=== PATIENT | male | born 1995 | race Caucasian/White ===

== ENCOUNTER 2017-08-12 20:52 | Emergency (ER) | payer SELFPAY ==
[~2017-08-12] VITALS: Ht 182.9 cm; Wt 60.0 kg
[~2017-08-12 20:52] MED LIST: IBUP-232 PO
[2017-08-12 20:54] VITALS: BP 143/92; PULSE 110; RESP 16; TEMP 98.3; O2SAT 100
--- NOTE | 2017-08-12 21:03 | PD ---
Physical Exam Date Seen by Provider: Aug 12, 2017 Time Seen by Provider: 20:59 Narrative 22-year-old male is seen by department with five-day history of flulike symptoms including headache, sore throat which is now better, using congestion in the chest with productive cough of yellow sputum. Patient has generalized aches and pains as well as decreased appetite. He denies vomiting or diarrhea. He comes in today due to the worsening chest congestion today. Patient has history of tachycardia which he has "normally". Patient is allergic to amoxicillin, Augmentin, and azithromycin. Vital signs are stable. Patient is awaiting bed placement. Data Data Last Documented VS Vital Signs Date Time Temp Pulse Resp B/P (MAP) Pulse Ox O2 Delivery O2 Flow Rate FiO2 08/12/17 20:54 98.3 110 16 143/92 (109) 100 Room Air [facility] Medical Record Reviewed: Yes Supervised Visit with YAJAIRA: Yes Condition: Stable Uche Mccoy Aug 12, 2017 21:02
[2017-08-12] MEDS ORDERED: ALBUAER3 INH (21:12)
[2017-08-12] MEDS ORDERED: MEDR4PAK PO (21:12)
--- NOTE | 2017-08-12 21:12 | PD ---
HPI Chief Complaint: Cold / Flu Symptoms Time Seen by Provider: 21:06 Travel History International Travel<30 days: No Contact w/Intl Traveler<30days: No Traveled to known affect area: No History of Present Illness HPI 22-year-old male presents to emergency department for evaluation a 5 day history of cough and chest congestion. States that his throat was sore but that has improved. States this chest congestion seems to be getting worse. It is productive intermittently of a yellow phlegm. Denies fever or chills. Patient has history tachycardia and his heart rate is normally in the 110s. Denies any chest pain. States he has had some body aches but he is not currently. Denies any other symptoms at this time. PFSH Past Medical History Autoimmune Disease: No Anxiety: Yes Depression: Yes Cancer: No Cardiovascular Problems: Yes (TACHY) Diabetes: No Diminished Hearing: No Endocrine: No Gastrointestinal Disorders: No Genitourinary: No Immune Disorder: No Implanted Vascular Access Dvce: No Musculoskeletal: No Neurologic: No Psychiatric: Yes Reproductive: No Respiratory: No Immunizations Current: Yes Thyroid Disease: No Past Surgical History Surgical History: No Previous Surgery Other Surgery: No Social History Alcohol Use: Yes (RARE) Tobacco Use: Yes (1/2 PPD) Substance Use: Yes (marijuana) Allergies-Medications (Allergen,Severity, Reaction): Coded Allergies: amoxicillin (Unverified Allergy, Severe, HIVES, 08/12/17) clavulanic acid (Unverified Allergy, Severe, HIVES, 08/12/17) azithromycin (Unverified Allergy, Mild, rash, 08/12/17) Reported Meds & Prescriptions Reported Meds & Active Scripts Active Proair Hfa 8.5 GM Inh (Albuterol Sulfate) 90 Mcg/Act Aer 2 Puff INH Q4HR PRN 108 mcg/actuation Medrol Dosepak (Methylprednisolone) 4 Mg Dspk 4 Mg PO DIRECTED Per Pharmacist direction Review of Systems Except as stated in HPI: all other systems reviewed are Neg Physical Exam Narrative GENERAL: Well-nourished male patient, in no acute distress SKIN: Focused skin assessment warm/dry. HEAD: Atraumatic. Normocephalic. EYES: Pupils equal and round. No scleral icterus. No injection or drainage. ENT: No nasal bleeding or discharge. Mucous membranes pink and moist. No erythema, edema, or exudate NECK: Trachea midline. No JVD. No anterior cervical lymphadenopathy CARDIOVASCULAR: Tachycardic rate and rhythm. No murmur appreciated. RESPIRATORY: No accessory muscle use. Diminished bilateral bases to auscultation .. Breath sounds equal bilaterally. GASTROINTESTINAL: Abdomen soft, non-tender, nondistended. Hepatic and splenic margins not palpable. MUSCULOSKELETAL: No obvious deformities. No clubbing. No cyanosis. No edema. NEUROLOGICAL: Awake and alert. No obvious cranial nerve deficits. Motor grossly within normal limits. Normal speech. Data Data Last Documented VS Vital Signs Date Time Temp Pulse Resp B/P (MAP) Pulse Ox O2 Delivery O2 Flow Rate FiO2 08/12/17 21:10 16 97 Room Air 08/12/17 20:54 98.3 110 143/92 (109) MDM Medical Decision Making Medical Screen Exam Complete: Yes Emergency Medical Condition: Yes Medical Record Reviewed: Yes Differential Diagnosis Bronchitis versus pneumonia versus influenza versus other URI Narrative Course 22-year-old male presents to emergency department for evaluation of cough and chest congestion. Patient appears without distress. He does have a dry cough here in the emergency department. Slightly diminished breath sounds in the bases. They're not course. This is likely a viral URI. Patient is counseled on symptom control. He'll be given additional medication for this. He is encouraged to follow-up with the primary care provider and return immediately with any acute worsening symptoms. Diagnosis Primary Impression: Upper respiratory infection Qualified Codes: J06.9 - Acute upper respiratory infection, unspecified; B97.89 - Other viral agents as the cause of diseases classified elsewhere Referrals: [facility] Primary Care Physician Patient Instructions: General Instructions, Upper Respiratory Infection (ED) Additional Instructions: Humidified air may help to alleviate symptoms [id number] cough syrup as directed on the package as needed for cough Follow up with a primary care provider Return immediately to the emergency department with any acute worsening symptoms Med/Other Pt SpecificInfo: Prescription(s) given Scripts Albuterol 8.5 GM Inh (Proair Hfa 8.5 GM Inh) 90 Mcg/Act Aer 2 PUFF INH Q4HR Y for SHORTNESS OF BREATH, #1 INHALER 0 Refills 108 mcg/actuation Prov: Dorie Erazo 08/12/17 Methylprednisolone Dosepak (Medrol Dosepak) 4 Mg Dspk 4 MG PO DIRECTED, #1 DSPK 0 Refills Per Pharmacist direction Prov: Dorie Erazo 08/12/17 Disposition: 01 DISCHARGE HOME Condition: Stable Dorie Erazo Aug 12, 2017 21:12
== END 2017-08-12 21:30 | disposition home or self-care (01) ==
LOC: NEPK 20:52
DX: J06.9 Acute upper respiratory infection, unspecified (principal)
CPT/HCPCS: 99284

== ENCOUNTER 2018-07-20 15:39 | Inpatient (IN) ==
[2018-07-20] MEDS ORDERED: Sod Chloride 0.9% Inj 1,000 ML IV.SIG ONE (15:50)
--- NOTE | 2018-07-20 16:23 | CT ---
EXAM DATE: 07/20/2018 4:18 PM EDT AGE/SEX: 23 years / Male INDICATIONS: Witnessed seizure. Headache. CLINICAL DATA: This is the patient's initial encounter. Patient reports that signs and symptoms have been present for 1 day and indicates a pain score of 6/10. MEDICAL/SURGICAL HISTORY: . Restless leg syndrome. None. RADIATION DOSE: 38.45 CTDI (mGy) [place] [facility] [place]. . TECHNIQUE: CT of the head without contrast. Using automated exposure control and adjustment of the mA and/or kV according to patient size, radiation dose was kept as low as reasonably achievable to ob tain optimal diagnostic quality images. DICOM format image data is available electronically for revi ew and comparison. FINDINGS: Cerebrum: The ventricles are normal for age. No evidence of midline shift, mass lesion, hemorrhage or acute infarction. No extraaxial fluid collections are seen. Posterior Fossa: The cerebellum and brainstem are intact. The 4th ventricle is midline. The cerebe llopontine angle is unremarkable. Extracranial: The visualized portion of the orbits is intact. Skull: The calvaria is intact. No evidence of skull fracture. CONCLUSION: Negative CT Head non contrast. . Electronically signed by: Riley Turner MD 07/20/2018 4:22 PM EDT
[2018-07-20 16:29] LABS: Baso % (Auto) 0.4 % (0.0-2.0); Eos # (Auto) 0.1 th/mm3 (0.0-0.4); Eos % (Auto) 1.4 % (0.0-4.0); Hematocrit 44.1 % (39.0-51.0); Lymph # (Auto) 2.5 th/mm3 (1.0-4.8); Lymph % (Auto) 24.1 % (9.0-44.0); Mean Corpuscular Hemoglobin 33.2 pg (27.0-34.0); Mean Corpuscular Volume 97.7 fL (80.0-100.0); Mean Platelet Volume 8.5 fL (7.0-11.0); Mono # (Auto) 0.5 th/mm3 (0.0-0.9); Mono % (Auto) 5.2 % (0.0-8.0); Neut # (Auto) 7.2 th/mm3 (1.8-7.7); Neut % (Auto) 68.9 % (16.0-70.0); Platelet Count 289 th/mm3 (150-450); Red Blood Count 4.51 mil/mm3 (4.50-5.90); Red Cell Distribution Width 13.4 % (11.6-17.2); White Blood Count 10.5 th/mm3 (4.0-11.0)
[2018-07-20] MEDS ORDERED: Acetaminophen 325 MG Tablet PO ONE (16:32)
[2018-07-20 16:34] LABS: Bilirubin,Urine Negative (Negative); Clarity,Urine Clear (Clear); Color,Urine Yellow (Yellw/Straw); Glucose,Urine (UA) Negative (Negative); Leukocyte Esterase,Urine Negative (Negative); Nitrite,Urine Negative (Negative); Specific Gravity,Urine 1.017 (1.002-1.035); Squamous Epithelial Cell,Urine <1 /hpf (0-5)
[2018-07-20] MEDS ORDERED: Phenytoin Inj 1,000 MG in Sodium Chlor 0.9% Inj 100 ML IV.SIG ONE (16:49)
[2018-07-20 17:00] LABS: Anion Gap 11 meq/L (5-15); Blood Urea Nitrogen 6 mg/dL (7-18); Calcium 8.6 mg/dL (8.5-10.1); Carbon Dioxide 26.1 meq/L (21.0-32.0); Chloride 104 meq/L (98-107); Glomerular Filtration Rate 87 mL/min (>89); Glucose,Random 92 mg/dL (74-106); Magnesium 1.9 mg/dL (1.5-2.5); Potassium 3.8 meq/L (3.5-5.1); Sodium 141 meq/L (136-145)
[2018-07-20] MEDS ORDERED: Sod Chloride 0.9% Inj 1,000 ML IV.SIG SCH (17:00)
[2018-07-20] MEDS ORDERED: Acetaminophen 325 MG Tablet PO PRN (17:31)
--- NOTE | 2018-07-20 17:37 | ED ---
HPI General Chief complaint: Seizure Stated complaint: Poss seizure Time Seen by Provider: 07/20/18 15:50 Source: patient, EMS and RN notes reviewed Mode of arrival: ambulatory Limitations: no limitations History of Present Illness HPI narrative: 23-year-old male the presents to the ED for evaluation of possible seizure. Patient apparently had a full clonic tonic seizure today. Per patient he has no history of seizures but he does state that when he was very young his mother told him that he had seizures secondary to "blood poisoning". Per patient he has not taken any seizure medication as far as he knows since age of 2. He does state however that he has a history of substance abuse and recently went into rehab facility for about 28 days. Per patient he did well and has been clean per patient since. He was put on gabapentin by the rehab facility as well as another medication but he cannot afford the medication secondary to his insurance not covering it. Per patient he was for depression. Per patient today he does not remember what happened all he remembers just all of a sudden his body feel shaky and then he started shaking. He denies any substance abuse since leaving the rehab. He denies any chest pain or shortness of breath or any palpitations before this happened. No fevers chills or sweats. He was found to be somewhat tachycardic by [facility] and by the time they had evaluated him he was GCS of 15. He was a little bit groggy and did took some time for the patient to come back to it. No tongue biting or loss of incontinence. Related Data Home Medications Medication Instructions Recorded Confirmed gabapentin 600 mg PO TID 07/20/18 07/20/18 Allergies Allergy/AdvReac Type Severity Reaction Status Date / Time amoxicillin Allergy Severe HIVES Verified 07/20/18 16:25 clavulanic acid Allergy Severe HIVES Verified 07/20/18 16:25 azithromycin Allergy Mild rash Verified 07/20/18 16:25 Review of Systems ROS: all other systems reviewed are negative [facility] Medical History Medical History Restless leg syndrome (Acute) Social History Social History Substance History: No History of Abuse Second Hand Smoke Exposure: No Smoking Status: Current every day smoker Tobacco Type: E-Cigarettes How Often Do You Have a Drink Containing Alcohol: Monthly or less Recent Travel in [facility] within the Last 8 Weeks: No Recent Out of Country Travel within the Last 8 Weeks: No Immunization History Tetanus Immunization: >5 Years Exam Narrative Exam Narrative: GENERAL: Well-appearing SKIN: Focused skin assessment warm/dry. HEAD: Atraumatic. Normocephalic. EYES: Pupils equal and round. No scleral icterus. No injection or drainage. ENT: No nasal bleeding or discharge. Mucous membranes pink and moist. Tongue is midline. No uvula deviation. NECK: Trachea midline. No JVD. CARDIOVASCULAR: Tachycardic rate and rhythm. No murmur appreciated. RESPIRATORY: No accessory muscle use. Clear to auscultation. Breath sounds equal bilaterally. GASTROINTESTINAL: Abdomen soft, non-tender, nondistended. Hepatic and splenic margins not palpable. MUSCULOSKELETAL: No obvious deformities. No clubbing. No cyanosis. No edema. Full range of motion of the upper and lower extremities bilaterally. 2+ pulses bilaterally. NEUROLOGICAL: Awake and alert. No obvious cranial nerve deficits. Motor grossly within normal limits. Normal speech. PSYCHIATRIC: Appropriate mood and affect; insight and judgment normal. Course Initial Documented Vital Signs Temperature 98.6 F 07/20/18 15:47 Pulse Rate 116 H 07/20/18 15:47 Respiratory Rate 18 07/20/18 15:47 Blood Pressure 142/86 H 07/20/18 15:47 Pulse Oximetry 98 07/20/18 15:47 Last Documented Vital Signs Temperature 98.6 F 07/20/18 15:47 Pulse Rate 106 H 07/20/18 16:30 Respiratory Rate 18 07/20/18 16:30 Blood Pressure 145/86 H 07/20/18 16:30 Pulse Oximetry 100 07/20/18 16:54 Medical Decision Making YAJAIRA Attestation YAJAIRA supervised visit: Yes Attestation: I, Dr. Gardner, have reviewed the advance practice practitioner's documentation and am in agreement, met with the patient face to face, made the diagnosis, and the medical decision making was done by me. *My assessment and Findings: This patient has new onset of seizure and has had multiple seizures. He has history of substance abuse problem so this certainly could be related but supposedly is clean for 1 month. Given the multiple seizures today were going to take a cautious approach and Dilantin load him and placed him into the hospital. Labs and brain CT ordered. MDM Narrative Medical decision making narrative: 23-year-old male the presents to the ED for evaluation of seizures. Patient was properly examined and was found to have signs and symptoms which appeared to be consistent with possible seizures. Labs and imaging were done here. Labs and imaging were essentially unremarkable other than elevated lactic acid. While patient was getting worked up he had another full tonic clonic seizure. He completely went limp with both upper and lower extremities and was unable to respond for about a minute. Patient was given Ativan and Dilantin. Because this is the patient's second seizure in less than an hour would recommend admission for further evaluation. Patient and friend who is at bedside agree with this. Case discussed with my attending Dr. Gardner who agrees with admission. Case discussed with Dr. Roger who agrees to admission to his service. Medical Screen Exam Complete: Yes Emergency Medical Condition: Yes Differential Diagnosis Differential Diagnosis: Seizure versus withdrawal seizures versus substance abuse Medical Records Medical records reviewed: Yes I reviewed the patient's medical records. Lab Data Lab results reviewed: Yes I reviewed the patient's lab results. Lab results narrative: lactic acid elevated Result diagrams: 07/20/18 16:00 07/20/18 16:00 Lab Results 07/20/18 07/20/18 07/20/18 Range/Units 16:00 16:00 16:05 WBC 10.5 (4.0-11.0) th/mm3 RBC 4.51 (4.50-5.90) mil/mm3 Hgb 15.0 (13.0-17.0) gm/dL Hct 44.1 (39.0-51.0) % MCV 97.7 (80.0-100.0) fL MCH 33.2 (27.0-34.0) pg MCHC 34.0 (32.0-36.0) % RDW 13.4 (11.6-17.2) % Plt Count 289 (150-450) th/mm3 MPV 8.5 (7.0-11.0) fL Neut % (Auto) 68.9 (16.0-70.0) % Lymph % (Auto) 24.1 (9.0-44.0) % [place] % (Auto) 5.2 (0.0-8.0) % Eos % (Auto) 1.4 (0.0-4.0) % Baso % (Auto) 0.4 (0.0-2.0) % Neut # (Auto) 7.2 (1.8-7.7) th/mm3 Lymph # (Auto) 2.5 (1.0-4.8) th/mm3 [place] # (Auto) 0.5 (0.0-0.9) th/mm3 Eos # (Auto) 0.1 (0.0-0.4) th/mm3 Baso # (Auto) 0.0 (0.0-0.2) th/mm3 WBC Differential . Differential Comment Auto diff final Sodium 141 (136-145) meq/L Potassium 3.8 (3.5-5.1) meq/L Chloride 104 (98-107) meq/L Carbon Dioxide 26.1 (21.0-32.0) meq/L Anion Gap 11 (5-15) meq/L BUN 6 L (7-18) mg/dL Creatinine 1.04 (0.60-1.30) mg/dL Estimated GFR 87 L (>89) mL/min Random Glucose 92 (74-106) mg/dL Lactic Acid 2.7 H (0.4-2.0) mmol/L Calcium 8.6 (8.5-10.1) mg/dL Magnesium 1.9 (1.5-2.5) mg/dL Urine Color (Yellw/Straw) Urine Clarity (Clear) Urine pH (5.0-8.5) Ur Specific [place] (1.002-1.035) Urine Protein (Neg-Trace) mg/dL Urine Glucose (UA) (Negative) mg/dL Urine Ketones (Negative) mg/dL Urine Occult Blood (Negative) Urine Nitrate (Negative) Urine Bilirubin (Negative) Urine Urobilinogen (Less than 2) mg/dL Ur Leukocyte Esterase (Negative) Urine WBC (0-5) /hpf Ur Squamous Epith Cells (0-5) /hpf Ur Microscopic Review Urine Opiates Screen (Neg) Ur Barbiturates Screen (Neg) Ur Amphetamines Screen (Neg) U Benzodiazepines Scrn (Neg) Urine Cocaine Screen (Neg) U Cannabinoids Screen (Neg) Serum Alcohol Less than 3 (0-5) mg/dL 07/20/18 07/20/18 Range/Units 16:05 16:19 WBC (4.0-11.0) th/mm3 RBC (4.50-5.90) mil/mm3 Hgb (13.0-17.0) gm/dL Hct (39.0-51.0) % MCV (80.0-100.0) fL MCH (27.0-34.0) pg MCHC (32.0-36.0) % RDW (11.6-17.2) % Plt Count (150-450) th/mm3 MPV (7.0-11.0) fL Neut % (Auto) (16.0-70.0) % Lymph % (Auto) (9.0-44.0) % [place] % (Auto) (0.0-8.0) % Eos % (Auto) (0.0-4.0) % Baso % (Auto) (0.0-2.0) % Neut # (Auto) (1.8-7.7) th/mm3 Lymph # (Auto) (1.0-4.8) th/mm3 [place] # (Auto) (0.0-0.9) th/mm3 Eos # (Auto) (0.0-0.4) th/mm3 Baso # (Auto) (0.0-0.2) th/mm3 WBC Differential Differential Comment Sodium (136-145) meq/L Potassium (3.5-5.1) meq/L Chloride (98-107) meq/L Carbon Dioxide (21.0-32.0) meq/L Anion Gap (5-15) meq/L BUN (7-18) mg/dL Creatinine (0.60-1.30) mg/dL Estimated GFR (>89) mL/min Random Glucose (74-106) mg/dL Lactic Acid (0.4-2.0) mmol/L Calcium (8.5-10.1) mg/dL Magnesium (1.5-2.5) mg/dL Urine Color Yellow (Yellw/Straw) Urine Clarity Clear (Clear) Urine pH 6.0 (5.0-8.5) Ur Specific [place] 1.017 (1.002-1.035) Urine Protein Negative (Neg-Trace) mg/dL Urine Glucose (UA) Negative (Negative) mg/dL Urine Ketones Negative (Negative) mg/dL Urine Occult Blood Negative (Negative) Urine Nitrate Negative (Negative) Urine Bilirubin Negative (Negative) Urine Urobilinogen Less than 2 (Less than 2) mg/dL Ur Leukocyte Esterase Negative (Negative) Urine WBC Less than 1 (0-5) /hpf Ur Squamous Epith Cells <1 (0-5) /hpf Ur Microscopic Review Not Reportable Urine Opiates Screen Neg (Neg) Ur Barbiturates Screen Neg (Neg) Ur Amphetamines Screen Neg (Neg) U Benzodiazepines Scrn Neg (Neg) Urine Cocaine Screen Neg (Neg) U Cannabinoids Screen Neg (Neg) Serum Alcohol (0-5) mg/dL Imaging Data Attestation: I personally reviewed and interpreted this imaging study as follows : Radiologist's impression: Head CT 07/20/18 15:50 CONCLUSION: Negative CT Head non contrast. . ECG Data EKG Prior to Arrival: No Attestation: I personally reviewed and interpreted this ECG as follows: Interpretation: EKG shows sinus tachycardia with no sign of acute ischemia read by me and attending. No ST elevations. Rate in the 118s. Discharge Plan Discharge Disposition Patient Disposition: 30 Still Patient Discharge Details Diagnosis: Generalized seizure Physicians Team ED Provider: Jason Gardner ED Midlevel Provider: Kike Lemus Primary Care Provider: Primary Care Angelito,Reyna Attending Provider: Osvaldo Roger Other Providers: Matthew Jackson Status ED Status: Admitted Patient
[2018-07-20 18:02] LABS: Amphetamine Screen,Urine Neg (Neg); Barbiturate Screen,Urine Neg (Neg); Cannabinoid Screen,Urine Neg (Neg); Cocaine Screen,Urine Neg (Neg); Opiate Screen,Urine Neg (Neg)
--- NOTE | 2018-07-20 18:03 | P.HPIM ---
History of Present Illness Service: [facility] Primary Care Physician: No Primary Care Physician Chief Complaint: Seizure History of Present Illness: This is a 23-year-old male. No past medical history reported. No history of seizures when he was 2 years old. History obtained from chart review. Patient reported that he felt like he had a seizure that occurred earlier today. Has not had any since he was 2. Denies any current use of substance abuse. States that he was using substance abuse quite frequently and checked himself at home rehab for about 28 days. He uses gabapentin from the rehab for restless leg syndrome. He does not remember what happened earlier today was told that his body was shaking and jerking, he does not remember any of this happening. While in the emergency room the patient went into a generalized tonic-clonic seizure. Received Ativan and Dilantin. Time he was evaluated he was asleep from the medication. - Diagnosis (1) Generalized seizure Inpatient Certification: I certify that the inpatient services were ordered in accordance with Medicare regulations governing the order. This includes certification that hospital inpatient services are reasonable and necessary and in the case of services not specified as inpatient-only under 42 CFR 419.22(n), that they are appropriately provided as inpatient services in accordance to with the 2-midnight benchmark under 43 CFR 412.3(e) Estimated Total Length of Stay (Days): 3 Plans for Post Hospital Care: Home Review of Systems unobtainable due to mental status PMFSH - History History Provided By: Patient - Medical / Surgical Hx Neg / Unobtainable Medical Problems Denied: Unable to Obtain - Medical History Medical History: Medical History (Last Reviewed 07/20/18 @ 17:31 by SUMMER Garcia) Restless leg syndrome - Tobacco History Second Hand Smoke Exposure: No Tobacco Use In Past 30 Days: Yes Smoking Status: Current every day smoker Tobacco Type: E-Cigarettes - Alcohol History How Often Do You Have a Drink Containing Alcohol: Monthly or less - Substance Use History Substance History: No History of Abuse - Travel History Recent Travel in the [place] Within the Last 8 Weeks: No Recent Travel Out of the Country Within the Last 8 Weeks: No - Immunization History Tetanus Immunization: >5 Years Medications and Allergies Active Medications: Active Medications Acetaminophen (Tylenol) 650 mg PO Q4H PRN PRN Reason: PAIN SCALE 1 TO 10 Sodium Chloride (Ns Inj) 1,000 mls @ 0 mls/hr IV.SIG BOLUS JACE Last Admin: 07/20/18 17:13 Dose: 1,000 mls/hr Lorazepam (Ativan Inj) 2 mg IV.PUSH Q10M PRN PRN Reason: SEE LABEL COMMENTS Allergies Allergy/AdvReac Type Severity Reaction Status Date / Time amoxicillin Allergy Severe HIVES Verified 07/20/18 16:25 clavulanic acid Allergy Severe HIVES Verified 07/20/18 16:25 azithromycin Allergy Mild rash Verified 07/20/18 16:25 Home Medications Medication Instructions Recorded Confirmed Type gabapentin 600 mg PO TID 07/20/18 07/20/18 History Exam Vital signs: Vital Signs 07/20/18 15:47 07/20/18 15:57 07/20/18 16:30 Temperature 98.6 F Pulse Rate 116 H 106 H Respiratory Rate 18 18 Blood Pressure 142/86 H 145/86 H Pulse Oximetry 98 99 99 07/20/18 16:54 Temperature Pulse Rate Respiratory Rate Blood Pressure Pulse Oximetry 100 Intake & Output 07/19/18 07/20/18 07/20/18 18:59 06:59 18:59 Weight 63.503 kg Narrative: Difficult to obtain as the patient was sedated at time of exam - Constitutional Comments: Sedated - Routine HEENT Exam Head: Present: normocephalic, atraumatic Eye: Present: EOMI, PERRL ENT: Present: mucous membranes moist, dentition normal, external ear normal, TM' s clear bilaterally - Routine Neck Exam Present: supple, full ROM - Routine Respiratory Exam Present: CTA bilaterally. Absent: accessory muscle use - Routine Cardiovascular Exam Present: RRR - Routine Abdominal Exam Present: soft, normoactive bowel sounds - Routine Extremities Exam Absent: edema - Routine Skin Exam Present: intact Results - Labs CBC & Chem 7: 07/20/18 16:00 07/20/18 16:00 Labs: Short CBC 07/20/18 Range/Units 16:00 WBC 10.5 (4.0-11.0) th/mm3 Hgb 15.0 (13.0-17.0) gm/dL Hct 44.1 (39.0-51.0) % Plt Count 289 (150-450) th/mm3 BMP 07/20/18 16:00 Sodium 141 Potassium 3.8 Chloride 104 Carbon Dioxide 26.1 BUN 6 L Creatinine 1.04 Calcium 8.6 Urine 07/20/18 Range/Units 16:05 Urine Color Yellow (Yellw/Straw) Urine Clarity Clear (Clear) Urine pH 6.0 (5.0-8.5) Ur Specific [place] 1.017 (1.002-1.035) Urine Protein Negative (Neg-Trace) mg/dL Urine Glucose (UA) Negative (Negative) mg/dL - Imaging Impressions Head CT 07/20/18 15:50 CONCLUSION: Negative CT Head non contrast. . Caprini VTE Risk Assessment Caprini VTE Risk Assessment: No/Low Risk (score <= 1) Caprini Risk Assessment Model: Point Value = 1 Point Value = 2 Point Value = 3 Point Value = 5 Age 41-60 Minor surgery BMI > 25 kg/m2 Swollen legs Varicose veins or History of unexplained or recurrent spontaneous Oral contraceptives or hormone replacement Sepsis (< 1 month) Serious lung disease, including pneumonia (< 1 month) Abnormal pulmonary function Acute myocardial infarction Congestive heart failure (< 1 month) History of inflammatory bowel disease Medical patient at bed rest Age 61-74 Arthroscopic surgery Major open surgery (> 45 min) Laparoscopic surgery (> 45 min) Malignancy Confined to bed (> 72 hours) Immobilizing plaster cast Central venous access Age >= 75 History of VTE Family history of VTE Factor V Leiden Prothrombin [id number] Lupus anticoagulant Anticardiolipin antibodies Elevated serum homocysteine Heparin-induced thrombocytopenia Other congenital or acquired thrombophilia Stroke (< 1 month) Elective arthroplasty Hip, pelvis, or leg fracture Acute spinal cord injury (< 1 month) Prophylaxis Regimen: Total Risk Factor Score Risk Level Prophylaxis Regimen 0-1 Low Early ambulation 2 Moderate Order ONE of the following: *Sequential Compression Device (SCD) *Heparin 5000 units SQ BID 3-4 Higher Order ONE of the following medications: *Heparin 5000 units SQ TID *Enoxaparin/Lovenox 40 mg SQ daily (WT < 150 kg, CrCl > 30 mL/min) *Enoxaparin/Lovenox 30 mg SQ daily (WT < 150 kg, CrCl > 10-29 mL/min) *Enoxaparin/Lovenox 30 mg SQ BID (WT < 150 kg, CrCl > 30 mL/min) AND/OR *Sequential Compression Device (SCD) 5 or more Highest Order ONE of the following medications: *Heparin 5000 units SQ TID (Preferred with Epidurals) *Enoxaparin/Lovenox 40 mg SQ daily (WT < 150 kg, CrCl > 30 mL/min) *Enoxaparin/Lovenox 30 mg SQ daily (WT < 150 kg, CrCl > 10-29 mL/min) *Enoxaparin/Lovenox 30 mg SQ BID (WT < 150 kg, CrCl > 30 mL/min) AND *Sequential Compression Device (SCD) Assessment and Plan - Assessment (1) Generalized seizure Code(s): R56.9 - Unspecified convulsions Status: Acute - Plan This is a 23-year-old male with past mental history of restless leg syndrome. Remote history of generalized seizures. Being admitted for generalized seizure. 1. Generalized tonic-clonic seizure. -Status post Dilantin and Ativan -Continue Ativan -Consulted neurology, recommendations appreciated -Anticipate patient being started on Keppra however will await further recommendations -Neurochecks 2. Restless leg syndrome -Currently holding patient's gabapentin can restart when he is more coherent. DVT prophylaxis with heparin Code Status: Full code Discussed Condition With: ED Discharge Planning: Home after further evaluation
[2018-07-20] MEDS: Heparin - SQ 10,000 UNITS/ML Vial SQ SCH (23:12)
[2018-07-21] MEDS: Heparin - SQ 10,000 UNITS/ML Vial SQ SCH ×2 (06:32→14:42)
[2018-07-21 07:04] LABS: Baso % (Auto) 0.4 % (0.0-2.0); Eos # (Auto) 0.2 th/mm3 (0.0-0.4); Eos % (Auto) 1.8 % (0.0-4.0); Hematocrit 39.7 % (39.0-51.0); Hemoglobin 13.7 gm/dL (13.0-17.0); Lymph # (Auto) 3.5 th/mm3 (1.0-4.8); Lymph % (Auto) 33.9 % (9.0-44.0); Mean Corpuscular HGB Conc 34.4 % (32.0-36.0); Mean Corpuscular Hemoglobin 33.3 pg (27.0-34.0); Mean Corpuscular Volume 96.9 fL (80.0-100.0); Mean Platelet Volume 7.9 fL (7.0-11.0); Mono # (Auto) 0.6 th/mm3 (0.0-0.9); Mono % (Auto) 6.1 % (0.0-8.0); Neut # (Auto) 5.9 th/mm3 (1.8-7.7); Neut % (Auto) 57.8 % (16.0-70.0); Platelet Count 257 th/mm3 (150-450); Red Cell Distribution Width 13.2 % (11.6-17.2); White Blood Count 10.2 th/mm3 (4.0-11.0)
[2018-07-21 07:34] LABS: Alanine Aminotransferase 53 U/L (12-78); Albumin 3.4 g/dL (3.4-5.0); Anion Gap 7 meq/L (5-15); Aspartate Aminotransferase 36 U/L (15-37); Blood Urea Nitrogen 5 mg/dL (7-18); Carbon Dioxide 27.9 meq/L (21.0-32.0); Chloride 108 meq/L (98-107); Glomerular Filtration Rate Greater Than 89 mL/min (>89); Glucose,Random 76 mg/dL (74-106); Potassium 4.1 meq/L (3.5-5.1); Sodium 143 meq/L (136-145)
[2018-07-21 07:35] LABS: Alkaline Phosphatase 95 U/L (45-117); Total Protein 6.4 g/dL (6.4-8.2)
[2018-07-21] MEDS ORDERED: Divalproex 500 MG ER Tablet PO SCH (09:30)
[2018-07-21 09:47] VITALS: RESP 20
--- NOTE | 2018-07-21 11:54 | ECG ---
Date Performed: 07/20/2018 Time Performed: 15:48:40 PTAGE: 23 years EKG: SINUS TACHYCARDIA NONSPECIFIC T-WAVE ABNORMALITY ABNORMAL RHYTHM ECG INTERPRETATION BASED O N A DEFAULT AGE OF 38 YEARS PREVIOUS TRACING : 10/16/2015 11.41 Compared to previous tracing, ST-T abnormality more p rominent than the prior tracing DOCTOR: Ismael Huddleston Interpretating Date/Time 07/21/2018 11:53:28
--- NOTE | 2018-07-21 12:45 | MB ---
cc: Matthew Mendoza MD DATE: 07/21/2018 HISTORY OF PRESENT ILLNESS: The patient is a 23-year-old right-handed man with some tachycardia, some anxiety. He has been off of narcotics. He was taking oral narcotics. He has been out of rehab 30 days, on gabapentin 600 t.i.d. He tells me he had a seizure when he was 2 years old and none since, nor any auras of seizures, and then he had 2 mal seizures yesterday. His girlfriend saw the second one, where he was staring off and curled up, shook all over, and he was confused afterwards. No incontinence or tongue biting. No headache. He denied any history of recent odd smells, taste, or kayleen vu. He has not woken up, wet the bed, or bitten his tongue. He has not taken Wellbutrin or tramadol. He is not a drinker, he is not an alcoholic. REVIEW OF SYSTEMS: He denies any history of hypertension, diabetes, hypercholesterolemia, [place], CABG, stent, angioplasty, A-fib, Coumadin; renal, hepatic, or pulmonary disease; thyroid disease, lupus, ulcer, cancer, seizure, or stroke. SOCIAL HISTORY: He is a smoker, not a drinker. No current drugs. Lives with his girlfriend. He does work at a [employer] center. FAMILY HISTORY: Negative for cancer. Negative for stroke. Positive for seizures in his mother, who is also on narcotics, evidently. MEDICATIONS AT HOME: As noted, the gabapentin only. ALLERGIES: ALLERGIC TO AMOXICILLIN, AZITHROMYCIN. MEDICATIONS HERE: He was given a dose of 1000 mg of Dilantin yesterday. He is on p.r.n. Ativan. He got 2 mg of Ativan yesterday. PHYSICAL EXAMINATION: VITAL SIGNS: Sinus rhythm, afebrile 84,18, 110/58. NECK: There were no carotid bruits. HEART: Regular rate and rhythm. I did not detect a murmur. NEUROLOGIC: Pupils are equal. Visual payne are full. Extraocular movements intact without nystagmus. Face is symmetric with normal sensation. Tongue was midline. There is no drift. He had normal strength in upper and lower extremities bilaterally. DTRs are trace throughout. Toes downgoing bilaterally and intact on [id number]. He is awake and alert, speaks fluently, is not aphasic. LABORATORY DATA: CBC is normal. Urine drug screen is negative. UA is negative. Basic metabolic profile was normal. LFTs normal. Albumin normal. DIAGNOSTIC DATA: A CAT scan of his brain was normal. Review of the films was read as normal. He has never been seen by neurology here before. IMPRESSION: Childhood seizure or family history of seizures, now another seizure. PLAN: We will check an MRI of the brain and EEG. For now, we will put him on Depakote, which may help with his anxiety as a mood stabilizer. I will see him as an outpatient. We may start some Lexapro on him in the future for anxiety, as that may have had something to do with self medication with narcotics. Check some additional blood work on him. He should not drive for 6 months, take a bath, swim alone, climb heights, use power tools, ride a bike, or any other activities where he could hurt himself if he would have another seizure. His MRI is negative and his EEG was performed. His blood work is done. He could be discharged on Depakote, we will start him on 500 extended release and at bedtime, and he will need a CBC, BMP, LFTs, and a Depakote level checked in 5 days. MD LYDIA Montejo/bruno , 09:20 AM , 09:29 AM
[2018-07-21] MEDS ORDERED: Gabapentin 300 MG Capsule PO SCH (13:00)
[2018-07-21] MEDS ORDERED: Gadobutrol PF 7.5 MMOL/7.5 ML Vial (for RAD) IV.SIG ONE (13:19)
--- NOTE | 2018-07-21 13:40 | MR ---
EXAM DATE: 07/21/2018 1:28 PM EDT AGE/SEX: 23 years / Male INDICATIONS: CVA. Seizures. CLINICAL DATA: This is the patient's initial encounter. Patient reports that signs and symptoms have been present for 1 day and indicates a pain score of 0/10. MEDICAL/SURGICAL HISTORY: None. None. COMPARISON: [facility] [place], CT HEAD W/O CONTRAST, 07/20/2018. . TECHNIQUE: Multiplanar, multisequence examination of the brain was performed without and with 6.6 ml Gadavist (gadobutrol) contrast as a single exam dose. FINDINGS: Cerebrum: The ventricles are normal for age. No evidence of midline shift, mass lesion, hemorrhage or acute infarction. No extraaxial fluid collections are seen. The pituitary gland and suprasellar cistern are normal in configuration. White Matter: No significant signal abnormalities are seen in the white matter. Posterior Fossa: The cerebellum and brainstem are intact. The 4th ventricle is midline. The cerebel lopontine angle is unremarkable. The cerebellar tonsils are normal in position. Diffusion Imaging: No focal areas of restricted diffusion are seen. No evidence of acute infarction . Extracranial: The visualized portions of the orbits and paranasal sinuses are unremarkable. Post Contrast: No abnormal areas of parenchymal or dural enhancement. No evidence of blood-brain ba rrier breakdown. CONCLUSION: 1. Unremarkable MRI. Electronically signed by: Eliseo Frank MD 07/21/2018 1:38 PM EDT
[2018-07-21 14:00] LABS: Free T4 (Free Thyroxine) 0.95 ng/dL (0.76-1.46); Thyroid Stimulating Hormone 0.564 uIU/mL (0.358-3.740)
[2018-07-21 15:28] VITALS: BP 118/63; PULSE 89; TEMP 97.7; O2SAT 98
--- NOTE | 2018-07-21 15:55 | MG ---
cc: Dale Barker MD, PhD DATE OF STUDY: 07/21/2018 TEST NUMBER: [id number] TECHNIQUE: A 17-channel EEG. DESCRIPTION: The background rhythm reveals a symmetrical alpha rhythm, frequency 8-10 Hz. Amplitude is about 30 microvolts. Occasional muscle artifact identified. No lateralizing features are seen. Photic stimulation results in a well-developed driving response. Hyperventilation was done with no abnormalities identified. INTERPRETATION: Normal electroencephalogram. Dale Barker MD, PhD ANTONIETA/ , 03:30 PM , 03:35 PM
--- NOTE | 2018-07-21 16:11 | P.PN ---
Subjective Interval history: Nursing reports patient had a seizure last night. But this morning he has not had any seizures. Patient has no new complaints today. Is happy to go home. Physical Exam Vital signs: Vital Signs 07/20/18 16:30 07/20/18 16:54 07/20/18 20:00 Temperature 97.4 F L Pulse Rate 106 H 90 Respiratory Rate 18 18 Blood Pressure 145/86 H 111/50 L Pulse Oximetry 99 100 96 07/21/18 00:00 07/21/18 04:00 07/21/18 08:00 Temperature 97.4 F L 97.3 F L 97.4 F L Pulse Rate 88 84 73 Respiratory Rate 19 18 20 Blood Pressure 108/63 110/58 L 105/63 Pulse Oximetry 95 93 L 100 07/21/18 12:00 Temperature 97.7 F Pulse Rate 89 Respiratory Rate 20 Blood Pressure 118/63 Pulse Oximetry 98 Intake & Output 07/20/18 07/21/18 07/21/18 18:59 06:59 18:59 Intake Total 2119 Balance 2119 Weight 63.503 kg 66.4 kg Intake: IV 2119 Dilantin Inj 1,000 MG In NS Inj 120 / 120 100 ML @ 288 mls/hr IV.SIG ONCE ONE Rx#:[id number] NS Inj 1,000 ML @ Wide Open IV. 1999 SIG BOLUS JACE Rx#:[id number] Narrative: Standing up with a good gait Clear lungs bilaterally, unlabored breathing No facial droop, no slurred speech, alert and oriented 3, intact insight Results - Labs CBC & Chem 7: 07/21/18 06:23 07/21/18 06:23 Laboratory Results - last 24 hr 07/20/18 07/20/18 07/20/18 16:00 16:00 16:05 WBC 10.5 RBC 4.51 Hgb 15.0 Hct 44.1 MCV 97.7 MCH 33.2 MCHC 34.0 RDW 13.4 Plt Count 289 MPV 8.5 Neut % (Auto) 68.9 Lymph % (Auto) 24.1 [place] % (Auto) 5.2 Eos % (Auto) 1.4 Baso % (Auto) 0.4 Neut # (Auto) 7.2 Lymph # (Auto) 2.5 [place] # (Auto) 0.5 Eos # (Auto) 0.1 Baso # (Auto) 0.0 WBC Differential . Differential Comment Auto diff final ESR Sodium 141 Potassium 3.8 Chloride 104 Carbon Dioxide 26.1 Anion Gap 11 BUN 6 L Creatinine 1.04 Estimated GFR 87 L Random Glucose 92 Lactic Acid 2.7 H Calcium 8.6 Magnesium 1.9 Total Bilirubin AST ALT Alkaline Phosphatase Total Protein Albumin Vitamin B12 TSH Free T4 Urine Color Urine Clarity Urine pH Ur Specific [place] Urine Protein Urine Glucose (UA) Urine Ketones Urine Occult Blood Urine Nitrate Urine Bilirubin Urine Urobilinogen Ur Leukocyte Esterase Urine WBC Ur Squamous Epith Cells Ur Microscopic Review Urine Opiates Screen Ur Barbiturates Screen Ur Amphetamines Screen U Benzodiazepines Scrn Urine Cocaine Screen U Cannabinoids Screen Serum Alcohol Less than 3 07/20/18 07/20/18 07/21/18 16:05 16:19 06:23 WBC 10.2 RBC 4.10 L Hgb 13.7 Hct 39.7 MCV 96.9 MCH 33.3 MCHC 34.4 RDW 13.2 Plt Count 257 MPV 7.9 Neut % (Auto) 57.8 Lymph % (Auto) 33.9 [place] % (Auto) 6.1 Eos % (Auto) 1.8 Baso % (Auto) 0.4 Neut # (Auto) 5.9 Lymph # (Auto) 3.5 [place] # (Auto) 0.6 Eos # (Auto) 0.2 Baso # (Auto) 0.0 WBC Differential . Differential Comment Auto diff final ESR Sodium Potassium Chloride Carbon Dioxide Anion Gap BUN Creatinine Estimated GFR Random Glucose Lactic Acid Calcium Magnesium Total Bilirubin AST ALT Alkaline Phosphatase Total Protein Albumin Vitamin B12 TSH Free T4 Urine Color Yellow Urine Clarity Clear Urine pH 6.0 Ur Specific [place] 1.017 Urine Protein Negative Urine Glucose (UA) Negative Urine Ketones Negative Urine Occult Blood Negative Urine Nitrate Negative Urine Bilirubin Negative Urine Urobilinogen Less than 2 Ur Leukocyte Esterase Negative Urine WBC Less than 1 Ur Squamous Epith Cells <1 Ur Microscopic Review Not Reportable Urine Opiates Screen Neg Ur Barbiturates Screen Neg Ur Amphetamines Screen Neg U Benzodiazepines Scrn Neg Urine Cocaine Screen Neg U Cannabinoids Screen Neg Serum Alcohol 07/21/18 07/21/18 07/21/18 06:23 09:17 12:25 WBC RBC Hgb Hct MCV MCH MCHC RDW Plt Count MPV Neut % (Auto) Lymph % (Auto) [place] % (Auto) Eos % (Auto) Baso % (Auto) Neut # (Auto) Lymph # (Auto) [place] # (Auto) Eos # (Auto) Baso # (Auto) WBC Differential Differential Comment ESR 1 Sodium 143 Potassium 4.1 Chloride 108 H Carbon Dioxide 27.9 Anion Gap 7 BUN 5 L Creatinine 0.92 Estimated GFR Greater than 89 Random Glucose 76 Lactic Acid Calcium 8.0 L Magnesium Total Bilirubin 0.7 AST 36 ALT 53 Alkaline Phosphatase 95 Total Protein 6.4 Albumin 3.4 Vitamin B12 503 TSH 0.564 Free T4 0.95 Urine Color Urine Clarity Urine pH Ur Specific [place] Urine Protein Urine Glucose (UA) Urine Ketones Urine Occult Blood Urine Nitrate Urine Bilirubin Urine Urobilinogen Ur Leukocyte Esterase Urine WBC Ur Squamous Epith Cells Ur Microscopic Review Urine Opiates Screen Ur Barbiturates Screen Ur Amphetamines Screen U Benzodiazepines Scrn Urine Cocaine Screen U Cannabinoids Screen Serum Alcohol Microbiology 07/20/18 16:05 Clean Catch Urine Urine Culture - Preliminary No growth in 24 hours 07/20/18 16:05 Blood - Peripheral Aerobic Blood Culture - Preliminary No growth in 1 day 07/20/18 16:05 Blood - Peripheral Anaerobic Blood Culture - Preliminary No growth in 1 day 07/20/18 16:00 Blood - Peripheral Aerobic Blood Culture - Preliminary No growth in 1 day 07/20/18 16:00 Blood - Peripheral Anaerobic Blood Culture - Preliminary No growth in 1 day - Imaging Impressions Head CT 07/20/18 15:50 CONCLUSION: Negative CT Head non contrast. . Head MRI 07/21/18 09:18 CONCLUSION: 1. Unremarkable MRI. Assessment and Plan - Assessment (1) Generalized seizure Code(s): R56.9 - Unspecified convulsions Status: Acute - Plan Asymptomatic this morning. Patient evaluated by neurology. Findings on MRI are all unremarkable. Electroencephalogram has already been performed, results pending. Discussed case with neurology, clear for discharge, if abnormal neurology will contact the patient. Patient on verbalized understanding about refraining from activities that are hazardous while having a diagnosis of seizures. Patient has met maximal benefit from hospitalization and is clinically stable for discharge. 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 Patient will be discharged on Depakote.
[2018-07-22 15:34] LABS: Anti-Nuclear Antibody Screen Neg (Neg)
== END 2018-07-21 16:59 | disposition home or self-care (01) ==
LOC: NEPE 15:39 → NEDA 17:47 → N04 19:18
PROVIDERS: ADMIT Hospitalist; ATTEND Hospitalist